=== PATIENT | female | born 1950 | race Two or more races ===

== ENCOUNTER 2017-12-05 12:40 | Outpatient (CLI) | payer MEDICARE, MEDICAID ==
[~2017-12-05] VITALS: Ht 152.4 cm; Wt 67.6 kg
[2017-12-05 13:31] VITALS: BP 98/54
[2017-12-05] MEDS ORDERED: UNOBMED (14:26)
--- NOTE | 2017-12-05 14:29 | GI Initial Consult Note ---
History of Present Illness General Date patient seen: Dec 05, 2017 Time patient seen: 14:19 Referring physician: JIMBO Reason for Consultation: PEG EVALUATION Present Illness HPI 66 year old female patient with hx of tongue, throat CA, weight loss and dysphagia presents to the clinic for PEG evaluation. The patient is ambulatory , NAD with no active s/sx of N/V/D. She is scheduled to undergo chemo radiation and the GT tube was recommended to meet her nutritional needs. Denies any abdominal pain at this time. Home Meds Reported Medications Unable to Obtain Medications (UNABLE TO OBTAIN MEDS) 1 Ea Ea 12/05/17 Med list reviewed/reconciled: Yes Allergies: Coded Allergies: PENICILLINS (Verified Allergy, Unknown, 12/05/17) Patient History History Provided By: Patient, Medical Record PMH Narrative Tongue, throat CA HTN DM Past Surgical History: Open heart surgery Arm Social History: Denies: smoking, alcohol use, drug use, other Review of Systems All Other Systems: negative except mentioned in HPI Physical Exam Vital Signs Date Time Temp Pulse Resp B/P (MAP) Pulse Ox O2 Delivery O2 Flow Rate FiO2 12/05/17 13:31 98.6 69 18 98/54 91 98.6 Sp02 EP Interpretation: reviewed, normal General Appearance: well appearing, no apparent distress, alert, obese Head: normocephalic EENT: PERRL/EOMI, normal ENT inspection Neck: supple Respiratory: normal breath sounds, no respiratory distress Cardiovascular: normal rate Gastrointestinal: normal inspection, non tender, soft, normal bowel sounds, non -distended Rectal: deferred Genitourinary: no CVA tenderness Musculoskeletal: normal inspection, back normal Neurologic: normal inspection, alert, oriented x3, responsive Psychiatric: normal inspection, judgement/insight normal, memory normal Skin: normal inspection, normal color, no rash, warm/dry, palpation normal, well hydrated Lymphatic: normal inspection, no adenopathy GI: Plan Problems: (1) Severe malnutrition (2) Throat cancer (3) Tongue cancer (4) Dysphagia (5) Dehydration (6) Encounter for PEG (percutaneous endoscopic gastrostomy) Plan PEG scheduled for tomorrow. - NPO @ [place] d/w patient and her friends. - hold any blood thinners Seen with Dr. Ulrich. Thank you for this patient referral. The patient was seen and examined at bedside and all new and available data was reviewed in the patients chart. I agree with the above findings, impression and plan. (Patient seen earlier today. Signature stamp does not reflect patient encounter time.). - MD Carmita Myers AnhGarret JOSEPH Dec 05, 2017 14:29
[2017-12-05] MEDS ORDERED: NORCO 5-325 TA1 EACH ORAL (14:52)
[2017-12-05] MEDS ORDERED: CLOTRIMAZOLE SL (14:52)
[2017-12-06] MEDS ORDERED: JANUVIA25 MG ORAL (12:09)
[2017-12-06] MEDS ORDERED: ATENOLOL25 MG ORAL (12:09)
== END 2017-12-05 13:22 | disposition home or self-care (01) ==
LOC: PAN 12:40
DX: R13.10 Dysphagia, unspecified (principal); C14.0 Malignant neoplasm of pharynx, unspecified; C02.9 Malignant neoplasm of tongue, unspecified; E43 Unspecified severe protein-calorie malnutrition; E86.0 Dehydration; Z88.0 Allergy status to penicillin; I10 Essential (primary) hypertension; E11.9 Type 2 diabetes mellitus without complications
CPT/HCPCS: 99202

== ENCOUNTER 2017-12-06 11:18 | Day surgery (SDC) | payer MEDICARE, MEDICAID ==
[~2017-12-06] VITALS: Ht 157.5 cm; Wt 67.1 kg
[2017-12-06] VITALS (11 sets, daily range): BP systolic 114–126; BP diastolic 55–64
[~2017-12-06 11:18] MED LIST: CLOTRIMAZOLE SL; NORCO 5-325 TA1 EACH ORAL; UNOBMED
[2017-12-06] MEDS ORDERED: Vancomycin 1 GM in D5W 275 ML IVPB ONE (12:00)
[2017-12-06] MEDS ORDERED: ATENOLOL25 MG ORAL (12:09)
[2017-12-06] MEDS ORDERED: JANUVIA25 MG ORAL (12:09)
[2017-12-06] MEDS ORDERED: LR 1000ml 1,000 ML IVLG SCH (12:11)
[2017-12-06] MEDS ORDERED: Labetalol 5mg/ml 20ml vial IV PRN (12:15)
[2017-12-06] MEDS ORDERED: Midazolam 2mg/2ml Inj IVP PRN (12:15)
[2017-12-06] MEDS ORDERED: oxyCODONE HCL/Acetaminophen 5/325mg ORAL PRN (12:15)
[2017-12-06] MEDS ORDERED: Atropine Inj 1mg/10ml Syr IV PRN (12:15)
[2017-12-06] MEDS ORDERED: Norco 5mg/325mg tab ORAL PRN (12:15)
[2017-12-06] MEDS ORDERED: Ketorolac 30mg Inj IV PRN ×2 (12:15)
[2017-12-06] MEDS ORDERED: Metoclopramide 10mg/2ml Inj IVP PRN (12:15)
[2017-12-06] MEDS ORDERED: LORazepam Inj 2mg/ml 1ml IV PRN (12:15)
[2017-12-06] MEDS ORDERED: fentaNYL 100 mcg/2 mL IV PRN (12:15)
[2017-12-06] MEDS ORDERED: Hydromorphone 0.5mg/0.5ml inj IVP PRN (12:15)
[2017-12-06] MEDS ORDERED: DiphenhydrAMINE 50mg/ml Inj IVP PRN (12:15)
[2017-12-06] MEDS ORDERED: HYDROcodone/Acetamin 7.5/325 tab ORAL PRN (12:15)
--- NOTE | 2017-12-06 12:24 | Anethesia Preoperative Eval ---
Anesthesia Pre-op PMH/ROS General Date of Evaluation: Dec 06, 2017 Time of Evaluation: 13:34 Anesthesiologist: Duane ASA Score: ASA 3 Mallampati Score Class I : Soft palate, uvula, fauces, pillars visible Class II: Soft palate, uvula, fauces visible Class III: Soft palate, base of uvula visible Class IV: Only hard plate visible Mallampati Classification: Class II Surgeon: Mojgan Diagnosis: Abd Pain Surgical Procedure: EGD/ PEG Anesthesia History: none Family History: no anesthesia problems Allergies: Coded Allergies: PENICILLINS (Verified Allergy, Severe, 12/06/17) ITCHING,RASH Medications: see eMAR Past Medical History Cardiovascular: Reports: HTN, CAD - CABG, other - HL Gastrointestinal/Genitourinary: Reports: other - Tongue CA Endocrine: Reports: DM, other - Hyperthyroidism HEENT: Reports: cataract (L), cataract (R) Hematology/Immune: Reports: anemia Musculoskeletal/Integumentary: Reports: other - Tongue CA PSxH Narrative: Cat Ext IOL OS, CABG Anesthesia Pre-op Phys. Exam Physician Exam Last Vital Signs Date Time Temp Pulse Resp B/P (MAP) Pulse Ox O2 Delivery O2 Flow Rate FiO2 12/06/17 11:51 Room Air Constitutional: NAD Neurologic: CN 2-12 intact Cardiovascular: RRR Respiratory: CTA Gastrointestinal: S/NT/ND Airway Exam Mallampati Score: Class II MO: limited ROM: limited Teeth: missing, intact, broken Anesthesia Pre-op A/P Risk Assessment & Plan Assessment: ASA 3 Plan: GA Status Change Before Surgery: No Domenic Zepeda MD Dec 06, 2017 12:23
--- NOTE | 2017-12-06 12:31 | Immediate Post-Op Evaluation ---
Immediate Post-Op Evalulation Immediate Post-Op Evalulation Procedure: EGD/PEG Date of Evaluation: Dec 06, 2017 Time of Evaluation: 14:17 IV Fluids: 100 NS Blood Products: 0 Estimated Blood Loss: 4 Urinary Output: 0 Blood Pressure Systolic: 122 Blood Pressure Diastolic: 58 Pulse Rate: 75 Respiratory Rate: 16 O2 Sat by Pulse Oximetry: 96 Temperature (Fahrenheit): 97.8 Pain Score (1-10): 1 Nausea: No Vomiting: No Complications 0 Patient Status: awake, reacts, patent, none Hydration Status: adequate Domenic Zepeda MD Dec 06, 2017 12:31
--- NOTE | 2017-12-06 12:32 | 48 Hour Post Anesthesia Eval ---
Post Anesthesia Evaluation Procedure: EGD/PEG Date of Evaluation: Dec 06, 2017 Time of Evaluation: 16:23 Blood Pressure Systolic: 123 0: 61 Pulse Rate: 73 Respiratory Rate: 18 Temperature (Fahrenheit): 97.8 O2 Sat by Pulse Oximetry: 96 Airway: patent Nausea: No Vomiting: No Pain Intensity: 1 Hydration Status: adequate Cardiopulmonary Status: Stable Mental Status/LOC: patient returned to baseline Follow-up Care/Observations: 0 Post-Anesthesia Complications: 0 Follow-up care needed: ready to discharge Domenic Zepeda MD Dec 06, 2017 12:31
[2017-12-06] MEDS ORDERED: Midazolam 2mg/2ml Inj ONE (13:30)
[2017-12-06] MEDS ORDERED: LR 1000ml ONE (13:30)
[2017-12-06] MEDS ORDERED: Lidocaine 1% MPF 10mg/ml 5ml ONE (13:30)
[2017-12-06] MEDS ORDERED: Propofol 200mg/20ml IV ONE (13:30)
--- NOTE | 2017-12-06 13:33 | Pre-Procedure Note/Attestation ---
Pre-Procedure Note/Attestation Complete Prior to Procedure Planned Procedure: not applicable Procedure Narrative: esophagogastroduodenoscopy peg Indications for Procedure Pre-Operative Diagnosis: dysphagia Attestation I attest that I discussed the nature of the procedure; its benefits; risks and complications; and alternatives (and the risks and benefits of such alternatives ), prior to the procedure, with the patient (or the patient's legal call center representative). I attest that, if there was a reasonable possibility of needing a blood transfusion, the patient (or the patient's legal call center representative) was given the [facility] standardized written summary, pursuant to the Deonte Judith Blood Safety Act ([place] Health and Safety Code # 1645, as amended). I attest that I re-evaluated the patient just prior to the surgery and that there has been no change in the patient's H&P, except as documented below: Magnus Ulrich MD Dec 06, 2017 13:33
--- NOTE | 2017-12-06 13:34 | Short Stay Surgery H&P ---
History of Present Illness History of Present Illness Chief Complaint see recent consult note HPI Emma Dailey is a 66 year old female who was admitted on for Throat Cancer Patient History Allergies: Coded Allergies: PENICILLINS (Verified Allergy, Severe, 12/06/17) ITCHING,RASH Medication History Scheduled Atenolol* (Tenormin*), 25 MG ORAL DAILY, (Reported) Sitagliptin* (Januvia*), 25 MG ORAL DAILY, (Reported) [clotriazole sita], 10 MG SL TID, (Reported) Scheduled PRN Hydrocodone Bit/Acetaminophen 5-325* ([place] 5-325*), 1 TAB ORAL Q6H PRN for For Pain, (Reported) Physical Exam Vital Signs Last Vital Signs Date Time Temp Pulse Resp B/P (MAP) Pulse Ox O2 Delivery O2 Flow Rate FiO2 12/06/17 12:48 98.1 73 20 126/64 (84) 97 98.1 12/06/17 11:51 Room Air Plan Attestation Are the patient's medical conditions optimized for surgery? Magnus Ulrich MD Dec 06, 2017 13:34
--- NOTE | 2017-12-06 13:39 | Endoscopy Procedure Note ---
Endoscopy Procedure Note General Indication for Procedure: dysphagia, tongue Cancer Procedures Performed: EGD, PEG Operative Findings/Diagnosis: same Specimen: none Pt Tolerated Procedure Well: Yes Estimated Blood Loss: none Anesthesia Anesthesiologist: lionel Anesthesia: MAC Inserted Devices Implant(s) used?: No GI Core Measures 50 yrs or older w/o bx or poly: Not Applicable 10yrs. F/U not recommended: Not Applicable Magnus Ulrich MD Dec 06, 2017 13:39
--- NOTE | 2017-12-06 17:45 | Procedure Note ---
DATE OF PROCEDURE: 12/06/2017 SURGEON: Magnus Ulrich M.D. ANESTHESIOLOGIST: Dr. Zepeda. REFERRING PHYSICIAN: Dennis Cueva M.D. PROCEDURE: Upper endoscopy with PEG placement. ANESTHESIA: Per Dr. Zepeda. INSTRUMENT: Olympus adult flexible upper endoscope. INDICATION: Tongue cancer, expecting chemoradiation therapy, so needed G-tube placement. The procedure, risks, benefits, and possible consequences, including hemorrhage, aspiration, perforation and infection, and alternative treatments, were explained to the patient/legal guardian by Dr. Magnus Ulrich and the patient/legal guardian understood and accepted these risks. DESCRIPTION OF PROCEDURE: After informed consent was obtained and the patient was adequately sedated, Olympus upper endoscope was advanced from the mouth into the second portion of the duodenum and retroflexion was performed in the stomach. Then under endoscopic guidance and under sterile condition, a 20[place] pull type of G-tube was successfully placed in the epigastric area. The distance from the tip of the tube to skin was about 3.5 cm in size. The patient tolerated the procedure very well without any complication. SUMMARY OF FINDINGS: Status post successful PEG placement. RECOMMENDATIONS: Abdominal binder. Elevate the head of the bed at all times. G-tube flush. G-tube care. Start tube feeding later today. The patient received a dose of vancomycin prior to this procedure. I want to thank, Dr. Dennis Cueva, for this kind referral. Magnus Ulrich M.D. DR: Jose JOB#: [id number] CC: Dennis Cueva M.D.; Fax#: [phone]
== END 2017-12-06 15:40 | disposition home or self-care (01) ==
LOC: GAS 11:18
DX: C02.9 Malignant neoplasm of tongue, unspecified (principal); I10 Essential (primary) hypertension; I25.10 Atherosclerotic heart disease of native coronary artery without angina pectoris; E78.5 Hyperlipidemia, unspecified; E11.9 Type 2 diabetes mellitus without complications; E05.90 Thyrotoxicosis, unspecified without thyrotoxic crisis or storm; D64.9 Anemia, unspecified; Z95.1 Presence of aortocoronary bypass graft
CPT/HCPCS: 43246; 82962; 93005; J2250; J2704; J3370; J7120; 94003; 94150